=== PATIENT | female | born 1965 | race Caucasian/White ===

== ENCOUNTER 2023-02-14 22:18 | Emergency (ER) | payer OTHER ==
[2023-02-14] MEDS ORDERED: Sodium Chloride 0.9% 10 ML Syringe FLUSH PRN (22:38)
[2023-02-14] MEDS ORDERED: diphenhydrAMINE 50 MG/ML SDV IVPUSH ONE (22:38)
[2023-02-14] MEDS ORDERED: Famotidine 20 MG/2 ML SDV IVPUSH ONE (22:38)
[2023-02-14] MEDS ORDERED: methylPREDNISolone Sodium Succinate 125 MG/2 ML SDV IVPUSH ONE (22:38)
== END 2023-02-15 01:12 | disposition home or self-care (01) ==
LOC: FB.ED 22:18
DX: T78.3XXA Angioneurotic edema, initial encounter (principal); J45.909 Unspecified asthma, uncomplicated
CPT/HCPCS: 96374; 96375; 99283; J1200; J2930; J3490